=== PATIENT | female | born 1955 ===

== ENCOUNTER → 2018-02-21 11:07 | Emergency (ER) | payer OTHER ==
--- NOTE | 2018-02-21 11:35 | UC ---
Hand/Wrist HPI - HPI Summary HPI Summary: Patient has left wrist injury after falling off a hover board prior arrival, no other complaints of pain - History Of Current Complaint Chief Complaint: UCUpperExtremity Stated Complaint: WRIST INJURY Time Seen by Provider: 02/21/18 11:12 Hx Obtained From: Patient ?: No Mechanism Of Injury: FOOSH Onset/Duration: Sudden Onset Severity Initially: Moderate Severity Currently: Moderate Pain Intensity: 8 Pain Scale Used: 0-10 Numeric Character Of Pain: Aching, Throbbing Aggravating Factor(s): Movement Alleviating Factor(s): Rest, Ice, Elevation, OTC Meds Associated Signs And Symptoms: Positive: Swelling Related History: Dominant Hand Right - Allergies/Home Medications Allergies/Adverse Reactions: Allergies Allergy/AdvReac Type Severity Reaction Status Date / Time ardicaine Allergy See Comment Uncoded 02/21/18 11:20 Home Medications: Home Medications Calcium Carbonate [Calcium] 500 mg PO 02/21/18 [History] Cholecalciferol TAB* [Vitamin D TAB*] 1,000 unit PO DAILY 02/21/18 [History Confirmed 02/21/18] Denosumab(NF) [Prolia(NF)] 60 mg SC 02/21/18 [History] Lisinopril 5 mg PO 02/21/18 [History] PMH/Surg Hx/FS Hx/Imm Hx Previously Healthy: No - osteoporosis Cardiovascular History: Hypertension - Surgical History Surgical History: None - Family History Known Family History: Positive: None - Social History Occupation: Employed Full-time Lives: With Family Alcohol Use: Occasionally Substance Use Type: None Smoking Status (MU): Never Smoked Tobacco Review of Systems Constitutional: Negative Skin: Negative Eyes: Negative ENT: Negative Respiratory: Negative Cardiovascular: Negative Gastrointestinal: Negative Genitourinary: Negative Motor: Negative Neurovascular: Negative Musculoskeletal: Arthralgia - Left wrist Neurological: Negative Psychological: Negative Is Patient Immunocompromised?: No All Other Systems Reviewed And Are Negative: Yes Physical Exam Triage Information Reviewed: Yes Appearance: Well-Appearing, No Pain Distress, Well-Nourished Vital Signs: Initial Vital Signs Temp 97.5 F 02/21/18 11:10 Pulse 67 02/21/18 11:10 Resp 18 02/21/18 11:10 BP 139/84 02/21/18 11:10 Pulse Ox 100 02/21/18 11:10 Vital Signs Reviewed: Yes Eye Exam: Normal Eyes: Positive: Conjunctiva Clear ENT Exam: Normal ENT: Positive: Normal ENT inspection, Hearing grossly normal. Negative: Trismus , Muffled voice, Hoarse voice, Dental tenderness Dental Exam: Normal Neck exam: Normal Neck: Positive: Supple, Nontender, No Lymphadenopathy Respiratory Exam: Normal Respiratory: Positive: Chest non-tender, No respiratory distress, No accessory muscle use Cardiovascular Exam: Normal Cardiovascular: Positive: RRR, Pulses Normal, Brisk Capillary Refill Musculoskeletal Exam: Other Musculoskeletal: Positive: Strength Limited @ - left wrist, ROM Limited @ - left wrist, Edema @ - left wrist Neurological Exam: Normal Neurological: Positive: Alert, Muscle Tone Normal Psychological Exam: Normal Skin Exam: Normal Hand/Wrist Course/Dx - Differential Dx/Diagnosis Provider Diagnoses: Foosh Left hand Discharge - Sign-Out/Discharge Documenting (check all that apply): Sign-Out Patient - final dictation Dr. Taylor Signing out patient TO: Amadou Baum - Discharge Plan Condition: Good Referrals: No Primary Care Phys,NOPCP [Primary Care Provider] - - Billing Disposition and Condition Condition: GOOD
--- NOTE | 2018-02-21 12:01 | RAD ---
INDICATION: LEFT wrist pain and edema post fall. COMPARISON: No relevant prior exams available [place] [facility] [place] [facility] [place]. TECHNIQUE: AP, lateral, and oblique views LEFT wrist. REPORT: Moderately comminuted and mildly impacted intra-articular fracture at the distal radius with disproportionate dorsal impaction resulting loss of the normal volar tilt of the distal radioarticular surface. Extension of the fracture to the radiocarpal and distal radioulnar joints. Associated grossly nondisplaced ulnar styloid avulsion fracture. Heterogeneous sclerosis at the normal morphology lunate bone which may reflect sequela of avascular necrosis or cystic change secondary to hyaline articular cartilage degeneration. Soft tissue swelling most prominent over the volar aspect. IMPRESSION: Comminuted intra-articular fracture of the distal radius with mild predominant dorsal impaction. Associated ulnar styloid avulsion.
--- NOTE | 2018-02-21 13:41 | UC ---
Aubrie Paredes Jason, scrib[facility] for [facility] on 02/21/18 at 1302 . - Progress Note Progress Note: This patient was signed out from Kayla Flores, pending disposition, awaiting wrist x-ray and splint placement. Wrist x-ray reveals, per radiologist, Comminuted intra-articular fracture of the distal radius with mild predominant dorsal impaction. Associated ulnar styloid avulsion. The ED physician has reviewed this radiology report. The patients condition is stable and will be discharged to home with Dx of left distal radius intra-articular comminuted fracture; ulnar styloid avulsion fracture. - EKG/XRAY/CT XRAY: wrist Course/Dx - Course Course Of Treatment: Patient is a 62 year old female who fell on left forearm while outstretched. She sustained a distal radius and ulnar fracture. There is no evidence of circulatory or neurologic compromise. The patient was put in a sugar tong splint. Post-splint circulation and sensory were intact. There is no additional pain. Dx of left distal radius intra-articular comminuted fracture; ulnar styloid avulsion fracture. Pre-Hypertensive BP reading of 139/84; patient referred to PCP for follow-up. Medications have been included in the original chart and reviewed. - Diagnoses Provider Diagnoses: Fracture of distal radius and ulna Discharge - Sign-Out/Discharge Documenting (check all that apply): Discharge - Discharge Plan Condition: Stable Disposition: HOME Patient Education Materials: Wrist Fracture in Adults (ED) Referrals: No Primary Care Phys,NOPCP [Primary Care Provider] - Additional Instructions: WE DISCUSSED: 1. You have a fracture of the end of your left radius and ulna. The injury has been splinted. 2. Take off the splint if you have any increased pain, numbness, circulation problems from swelling. 3. You have the x ray report and copies of the films for you doctor. 4. Elevate; ice to area may help. 5. Use sling when walking. 6. Re check in 2-3 days with your doctor. 7. Re check at any time for increased pain, swelling, numbness. Your blood pressure reading today was 139/84, indicating PREHYPERTENSION. Follow -up with your primary care provider within 4 weeks for blood pressure readings and further evaluation. PLEASE SEEK CARE AT THE EMERGENCY DEPARTMENT IF SYMPTOMS WORSEN OR IF NEW SYMPTOMS DEVELOP. FOLLOW UP WITH YOUR PRIMARY CARE PHYSICIAN. - Billing Disposition and Condition Condition: STABLE Disposition: HOME The documentation as recorded by the Aubrie avila Jason accurately reflects the service I personally performed and the decisions made by , Amadou Baum MD.
[2018-02-21 13:54] VITALS: BP 152/95
== END | disposition home or self-care (01) ==
LOC: UCEAST 11:07
DX: S69.92XA Unspecified injury of left wrist, hand and finger(s), initial encounter (principal); S52.572A Other intraarticular fracture of lower end of left radius, initial encounter for closed fracture; W20.8XXA Other cause of strike by thrown, projected or falling object, initial encounter; Y93.9 Activity, unspecified; Y92.9 Unspecified place or not applicable; I10 Essential (primary) hypertension; M81.0 Age-related osteoporosis without current pathological fracture; Z88.4 Allergy status to anesthetic agent
CPT/HCPCS: 99203; G0463